=== PATIENT | female | born 1970 | race Caucasian/White ===

== ENCOUNTER 2017-06-13 20:56 | Emergency (ER) | payer MEDICAID ==
[~2017-06-13] VITALS: Ht 162.6 cm; Wt 90.0 kg
[~2017-06-13 20:56] MED LIST: ARIP2TAB PO; BACL-19 PO; BUSP10TA PO; CALC200T24 PO; CLON-364 PO; DOXE50CA PO; FERR325T20 PO; FLUO40CA9 PO; GABA300C PO; HYDR-3240 PO; HYDR25TA11 PO; HYDR25TA6 PO; MALOXICAM PO; MELO-184 PO; METH750T2 PO; MORP15TA3 PO; NYST15CR2 TP; OXYC10TA6 PO; OXYC1TAB8 PO; PANT40TA3 PO; SULF1TAB24 PO; TETR500C3 PO; TRAM50TA2 PO; TRAZ150T68 PO
[2017-06-13 20:57] VITALS: BP 149/97
[2017-06-13] MEDS ORDERED: CLINDAMYCIN 150 MG/ML, 6ML IV ONE (22:00)
[2017-06-13] MEDS ORDERED: SODIUM CHLORIDE FLUSH 10ML SYR IVF ONE (22:00)
[2017-06-13] MEDS ORDERED: SODIUM CHLORIDE 0.9% 1,000ML IVBOLUS ONE (22:00)
[2017-06-13] MEDS ORDERED: CLINDAMYCIN PMX 600MG/50ML 50 ML IV ONE (22:30)
== END 2017-06-13 22:39 | disposition left against medical advice (07) ==
LOC: ED 22:33
DX: L03.213 Periorbital cellulitis (principal); H60.12 Cellulitis of left external ear
CPT/HCPCS: 99281

== ENCOUNTER 2019-01-11 10:39 | Emergency (ER) | payer MEDICAID ==
[~2019-01-11] VITALS: Ht 162.6 cm; Wt 104.5 kg
[~2019-01-11 10:39] MED LIST changes: -ARIP2TAB PO; +ARIP2TAB2 PO; -CLON-364 PO; +CLON0.5T11 PO; +FERR325T18 PO; -FERR325T20 PO; -MELO-184 PO; +MELO15TA24 PO; +TETR-17 PO; -TETR500C3 PO; +TRAZ150T62 PO; -TRAZ150T68 PO
[2019-01-11 10:45] VITALS: BP 126/82
[2019-01-11] MEDS ORDERED: OXYcodone/APAP 5/325MG TABLET ONE (11:51)
[2019-01-11] MEDS ORDERED: OXYcodone/APAP 5/325MG TABLET PO ONE (12:00)
== END 2019-01-11 13:18 | disposition home or self-care (01) ==
LOC: ED 13:15
DX: S52.572A Other intraarticular fracture of lower end of left radius, initial encounter for closed fracture (principal); F41.1 Generalized anxiety disorder; G89.29 Other chronic pain; W00.0XXA Fall on same level due to ice and snow, initial encounter; Y93.89 Activity, other specified; Y92.410 Unspecified street and highway as the place of occurrence of the external cause; Y99.8 Other external cause status
CPT/HCPCS: 29125; 99283

== ENCOUNTER 2019-05-03 12:58 | Emergency (ER) | payer MEDICAID ==
[~2019-05-03] VITALS: Ht 162.6 cm; Wt 100.0 kg
[2019-05-03 13:19] VITALS: BP 132/73
[2019-05-03] MEDS ORDERED: ONDANSETRON ODT 4 MG ONE (13:23)
[2019-05-03] MEDS ORDERED: ONDANSETRON ODT 4 MG PO ONE (13:30)
[2019-05-03 13:48] LABS: BASOPHILS % (AUTO) 0 % (0-1); EOSINOPHILS # (AUTO) 0.09 x10^3/uL (0-0.4); EOSINOPHILS % (AUTO) 1 % (1-7); LYMPHOCYTES # (AUTO) 0.86 x10^3/uL (1-3.4); LYMPHOCYTES % (AUTO) 7 % (22-44); MD NO; MEAN CORPUSCULAR HEMOGLOBIN 28.2 pg (27.0-34.8); MEAN CORPUSCULAR VOLUME 88.1 fL (80-100); MEAN PLATELET VOLUME 7.5 fL (7.4-10.4); MONOCYTES # (AUTO) 0.33 x10^3/uL (0.2-0.8); MONOCYTES % (AUTO) 3 % (2-9); NEUTROPHILS # (AUTO) 11.51 x10^3/uL (1.8-6.8); NEUTROPHILS % (AUTO) 90 % (42-75); PLATELET COUNT 301 x10^3/uL (130-400); RED BLOOD COUNT 4.96 x10^6/uL (3.82-5.3); RED CELL DISTRIBUTION WIDTH 14.8 % (9.6-15.2)
[2019-05-03 13:57] LABS: ALBUMIN 3.7 g/dL (3.4-5.0); ANION GAP 8 mmol/L (5-15); CALCIUM 8.8 mg/dL (8.5-10.1); CHLORIDE 112 mmol/L (98-107); CREATININE 1.15 mg/dL (0.55-1.02)
[2019-05-03 14:02] LABS: ALANINE AMINOTRANSFERASE 28 U/L (12-78); ALKALINE PHOSPHATASE 152 U/L (45-117); BILIRUBIN,TOTAL 0.4 mg/dL (0.2-1.0); TOTAL PROTEIN 7.8 g/dL (6.4-8.2)
--- NOTE | 2019-05-03 14:41 | NUR ---
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 PT LEFT BEFORE BEING ASSIGNED ROOM
== END 2019-05-03 14:44 | disposition left against medical advice (07) ==
LOC: ED 14:38
DX: R10.30 Lower abdominal pain, unspecified (principal); R11.2 Nausea with vomiting, unspecified
CPT/HCPCS: 36415; 80053; 83690; 84703; 85025; 99283; Q0162

== ENCOUNTER 2020-03-03 18:48 | Emergency (ER) | payer MEDICAID ==
[~2020-03-03] VITALS: Ht 160 cm; Wt 93.2 kg
[~2020-03-03 18:48] MED LIST changes: +CLON-364 PO; -CLON0.5T11 PO; +HYDR-826 PO; -HYDR25TA11 PO; +MORP-29 PO; -MORP15TA3 PO
[2020-03-03 18:56] VITALS: BP 120/60
[2020-03-03] MEDS ORDERED: HYDROmorphone 1 MG/ML, 1ML INJ IM PRN (19:30)
[2020-03-03] MEDS ORDERED: DIAZEPAM 5 MG TABLET PO ONE (19:30)
[2020-03-03] MEDS ORDERED: DIAZEPAM 5 MG TABLET ONE (19:51)
[2020-03-03] MEDS ORDERED: HYDROmorphone 1 MG/ML, 1ML INJ ONE (19:52)
[2020-03-03 19:53] LABS: CULTURE INDICATED? YES; MICROSCOPIC INDICATED
[2020-03-03] MEDS ORDERED: ONDANSETRON ODT 4 MG ONE (20:02)
[2020-03-03] MEDS ORDERED: ONDANSETRON ODT 4 MG PO ONE (20:30)
== END 2020-03-03 20:41 | disposition home or self-care (01) ==
LOC: ED 19:37
DX: M54.5 Low back pain (principal)
CPT/HCPCS: 81001; 87086; 96372; 99283; J1170; Q0162

== ENCOUNTER 2021-01-08 00:09 | Emergency (ER) | payer MEDICAID ==
[~2021-01-08] VITALS: Ht 162.6 cm; Wt 91.2 kg
[~2021-01-08 00:09] MED LIST changes: +HYDR-1067 PO; -HYDR-3240 PO; +METH-640 PO; -METH750T2 PO
[2021-01-08] MEDS ORDERED: HYDROmorphone 1 MG/ML, 1ML INJ IM ONE (02:00)
[2021-01-08] MEDS ORDERED: CYCLOBENZAPRINE 10 MG TABLET PO ONE (02:00)
[2021-01-08] MEDS ORDERED: HYDROmorphone 1 MG/ML, 1ML INJ ONE (02:11)
[2021-01-08] MEDS ORDERED: CYCLOBENZAPRINE 10 MG TABLET ONE (02:11)
[2021-01-08 02:27] VITALS: BP 135/74
== END 2021-01-08 02:30 | disposition home or self-care (01) ==
LOC: ED 00:39
DX: M25.551 Pain in right hip (principal); M54.5 Low back pain; M19.90 Unspecified osteoarthritis, unspecified site; F17.200 Nicotine dependence, unspecified, uncomplicated; Z88.0 Allergy status to penicillin; Z88.9 Allergy status to unspecified drugs, medicaments and biological substances; Z90.89 Acquired absence of other organs; Z98.51 Tubal ligation status; Z86.718 Personal history of other venous thrombosis and embolism
CPT/HCPCS: 73502; 96372; 99283; J1170

== ENCOUNTER 2021-02-04 06:48 | Emergency (ER) | payer MEDICAID ==
[~2021-02-04] VITALS: Ht 162.6 cm; Wt 92.5 kg
[2021-02-04] MEDS ORDERED: ONDANSETRON 2MG/ML, 2ML IVPush ONE (07:00)
[2021-02-04] MEDS ORDERED: HYDROmorphone 1 MG/ML, 1ML INJ IV ONE (07:00)
[2021-02-04] MEDS ORDERED: METHOCARBAMOL 750 MG TABLET PO ONE (07:00)
[2021-02-04] MEDS ORDERED: methylPREDNISolone SOD SUCC 125 MG/2 ML IVPush ONE (07:00)
[2021-02-04] MEDS ORDERED: KETOROLAC 30 MG/1 ML IVPush ONE (07:00)
[2021-02-04] MEDS ORDERED: SODIUM CHLORIDE FLUSH 10ML SYR IVF ONE (07:00)
--- NOTE | 2021-02-04 07:00 | NUR ---
Pt has a hx of a herniated disc for which she was supposed to have sx for last year but she "chickened out." Pt is going to PT for this and is waiting to get an MRI of her back. She is a pt of [facility]. Pt tripped and fell 4 days ago, denies feeling dizzy prior, denies LOC. Pt has diminished sensation on RLE at baseline but since fall the sensation is even less. Reflexes are also diminished on right side. Pt positioned to comfort. [facility] at bedside for eval.
[2021-02-04] MEDS ORDERED: KETOROLAC 30 MG/1 ML ONE (07:09)
[2021-02-04] MEDS ORDERED: HYDROmorphone 1 MG/ML, 1ML INJ ONE (07:09)
[2021-02-04] MEDS ORDERED: CYCLOBENZAPRINE 10 MG TABLET ONE (07:09)
--- NOTE | 2021-02-04 07:20 | NUR ---
Pt to imaging.
[2021-02-04] MEDS ORDERED: CYCLOBENZAPRINE 10 MG TABLET PO ONE (07:30)
[2021-02-04] MEDS ORDERED: LORazepam 2 MG/ML, 1ML ONE (07:48)
--- NOTE | 2021-02-04 07:56 | NUR ---
MRI called, "pt is off the table because she's in too much pain and claustriphobic." This RN to MRI to medicate pt with 1mg of Ativan.
[2021-02-04] MEDS ORDERED: LORazepam 2 MG/ML, 1ML IVPush ONE (08:00)
--- NOTE | 2021-02-04 08:18 | NUR ---
Pt back from MRI. Aroused pt from sleep, "I in a lot of pain." Pt back to sleep.
[2021-02-04 10:05] VITALS: BP 119/78
--- NOTE | 2021-02-04 10:14 | NUR ---
At time of d/c this RN to bedside to give insturctions. Pt sitting upright in bed, eating Doritos. This RN confirmed with pt that she has Medicaid/Medicare insurance and that she can use [facility] service. Pt stated "last time they just gave me a taxi voucher." Pt educated that [facility] is a service provided to her through her insurance. Pt yelled "why do you have to be so fucking rough?!" when this RN removed pulse ox sticker. Pt ambulatory to d/c phone with steady gait. Called this RN a "stupid bitch" as I walked away.
== END 2021-02-04 10:15 | disposition home or self-care (01) ==
LOC: ED 07:04
DX: M51.36 Other intervertebral disc degeneration, lumbar region (principal); F17.200 Nicotine dependence, unspecified, uncomplicated; Z90.89 Acquired absence of other organs; Z86.718 Personal history of other venous thrombosis and embolism
CPT/HCPCS: 72148; 96374; 96375; 99284; J1170; J1885; J2060

== ENCOUNTER 2021-04-16 09:16 | Emergency (ER) | payer MEDICAID ==
[~2021-04-16] VITALS: Ht 162.6 cm; Wt 87.0 kg
[~2021-04-16 09:16] MED LIST changes: -HYDR-1067 PO; +HYDR-2214 PO; +SULF-23 PO; -SULF1TAB24 PO
[2021-04-16 09:17] VITALS: BP 109/67
[2021-04-16] MEDS ORDERED: MORPHINE SULFATE 4 MG/ML, 1ML IVPush PRN (09:30)
[2021-04-16] MEDS ORDERED: ONDANSETRON 2MG/ML, 2ML IVPush ONE (09:30)
[2021-04-16] MEDS ORDERED: FAMOTIDINE 20 MG/2 ML IVPush ONE (09:30)
[2021-04-16] MEDS ORDERED: SODIUM CHLORIDE 0.9% 1,000ML IVBOLUS ONE (09:30)
--- NOTE | 2021-04-16 09:30 | NUR ---
EMT STUDENT ATTEMPTING IV INSERTION. PT UNCOOPERATIVE WITH IV PLACEMENT.
--- NOTE | 2021-04-16 09:40 | NUR ---
PER COAGULATOR, PT RIPPED OUT IV LINE AND IS GOING TO LEAVE.
--- NOTE | 2021-04-16 09:44 | NUR ---
PT FULLY DRESSED AND AMBULATING IN [place] USING OWN WALKER. PT FIRMLY STATES "I CAN'T STAY HERE. I CAN'T TAKE THE PAIN AND I'M LEAVING" PT AMBULATORY TO DC DESK AREA.
== END 2021-04-16 09:59 | disposition left against medical advice (07) ==
LOC: ED 09:23
DX: R10.12 Left upper quadrant pain (principal); R11.2 Nausea with vomiting, unspecified; R19.7 Diarrhea, unspecified; Z86.718 Personal history of other venous thrombosis and embolism; G89.29 Other chronic pain; M19.90 Unspecified osteoarthritis, unspecified site; Z90.89 Acquired absence of other organs; Z87.891 Personal history of nicotine dependence
CPT/HCPCS: 99283